=== PATIENT | female | born 1935 | race Hispanic/Latino ===

== ENCOUNTER 2017-01-01 12:54 | Outpatient (CLI) | payer MEDICARE ==
--- NOTE | 2017-01-01 15:28 | Mammography Report ---
STEREOTACTIC VACUUM ASSISTED BIOPSY WITH CLIP PLACEMENT RIGHT BREAST: 01/01/17 12:54:00 CLINICAL: Right retroareolar calcifications. COMPARISON:Recent [facility] mammogram. FINDINGS: Consent for the procedure was obtained. [employer] images demonstrated 2 groups of retroareolar calcifications. The more anterior group was targeted with stereotactic guidance. The skin was prepped with Betadine and anesthetized with 1% lidocaine. 2% lidocaine with epinephrine was injected for deeper anesthesia. 8 gauge Mammotome biopsy was performed from a CC from below approach through a small dermatotomy. Prefire and post-fire images demonstrated satisfactory positioning of the probe. Samples were obtained around the clock face. A specimen radiograph confirmed satisfactory sampling with removal of direct sales representative calcifications. A clip was deployed at the biopsy site and the deployment was confirmed with a radiograph. The probe was removed and hemostasis was achieved with mild pressure. A sterile dressing was applied. The patient tolerated the procedure well and there were no apparent complications. Two view mammogram demonstrated concordant position of the biopsy clip. IMPRESSION: Uncomplicated stereotactic biopsy with clip placement right breast.
--- NOTE | 2017-01-01 15:30 | Mammography Report ---
RIGHT DIGITAL DIAGNOSTIC MAMMOGRAM: 01/01/17 12:54:00 CLINICAL: For clip placement immediately status post stereotactic biopsy. COMPARISON:A recent [facility] mammogram. FINDINGS: A retroareolar biopsy clip is now identified at the site of previously identified calcifications. A 1.9 cm hematoma is best imaged on the CC view. IMPRESSION: Concordant clip deployment status post stereotactic biopsy.A 2 cm postbiopsy hematoma. BI-RADS CATEGORY: 4--Suspicious Pathology pending.
== END 2017-01-01 12:55 | disposition home or self-care (01) ==
LOC: SPVWC 12:54
PROVIDERS: ATTEND Surgery
DX: R92.1 Mammographic calcification found on diagnostic imaging of breast (principal)
CPT/HCPCS: 19081; A4648; G0206; 88305

== ENCOUNTER 2017-02-02 09:09 | Outpatient (CLI) | payer MEDICARE ==
--- NOTE | 2017-02-03 14:13 | Magnetic Resonance Report ---
BILATERAL BREAST MRI WITHOUT AND WITH CONTRAST: 02/02/17 09:09:00 CLINICAL: Abnormal mammogram. Status post benign right stereotactic breast biopsy on 01/01/17 COMPARISON:01/01/17 right mammogram.. TECHNIQUE: Axial 1.0-mm T1 without, axial high resolution 2.0-mm T2 and axial 1.0-mm dynamic Vibrant high-resolution postcontrast T1 fat saturation sequences on a 1.5 Lakshmi magnet. The examination was performed with an 8 channel dedicated [place] breast coil. Post processing with CAD and subtraction was performed on an [employer] workstation. 20 cc of Multihance was injected without incident for the contrast portion of the exam. Consent was obtained prior to the administration of the contrast. FINDINGS: Right: Mild background parenchymal enhancement. No mass or suspicious enhancement. The recent stereotactic biopsy site is at 6 o'clock 3.2 cm from the nipple. There is focal non-Mass enhancement at the site measuring 19.9 x 13.2 x 9.7 mm. No suspicious lymph nodes. Left: Mild background parenchymal enhancement. No mass or suspicious enhancement. No suspicious lymph nodes. IMPRESSION: Benign post biopsy enhancement at the recent stereotactic biopsy site. No mass or suspicious enhancement. Recommend routine mammographic screening. BI-RADS 2 -- Benign
== END 2017-02-02 09:10 | disposition home or self-care (01) ==
LOC: SPVIMAG 09:09
PROVIDERS: ATTEND Surgery
DX: R92.8 Other abnormal and inconclusive findings on diagnostic imaging of breast (principal)
CPT/HCPCS: 0159T; A9577; C8908; 77059

== ENCOUNTER 2017-05-15 09:16 | Outpatient (CLI) | payer MEDICARE ==
[2017-05-15 10:59] LABS: Cholesterol 203 mg/dL (50-199); HDL Cholesterol 34 mg/dL (40-59); LDL Cholesterol,Direct TNR mg/dL (50-130); Triglycerides 452 mg/dL (2-149)
== END 2017-05-15 09:17 | disposition home or self-care (01) ==
LOC: LABHHL 09:16
PROVIDERS: ATTEND Internal Medicine
DX: J44.9 Chronic obstructive pulmonary disease, unspecified (principal); K21.9 Gastro-esophageal reflux disease without esophagitis; M81.0 Age-related osteoporosis without current pathological fracture; E78.2 Mixed hyperlipidemia; G47.00 Insomnia, unspecified; Z79.899 Other long term (current) drug therapy
CPT/HCPCS: 36415; 80061; 83036